=== PATIENT | male | born 1985 | race Caucasian/White ===

== ENCOUNTER 2017-11-07 08:58 | Emergency (ER) | payer MEDICAID, OTHER ==
[2017-11-07 09:12] VITALS: TEMP 97; BMI 41.3
[2017-11-07] MEDS ORDERED: Sodium Chloride 0.9% 1,000 ML IV STA (10:11)
--- NOTE | 2017-11-07 10:30 | RAD ---
PROCEDURE: Left Foot Radiographs. HISTORY: jammed toe, pain to foot, swelling COMPARISON: None. FINDINGS: BONES: Normal. No fracture. JOINTS: Normal. SOFT TISSUES: Normal. OTHER FINDINGS: None. IMPRESSION: Normal left foot radiographs.
--- NOTE | 2017-11-07 10:37 | ED PDOC ---
Arrival/HPI - General Chief Complaint: Lower Extremity Problem/Injury Time Seen by Provider: 11/07/17 09:21 Historian: Patient - History of Present Illness Narrative History of Present Illness (Text): 11/07/17 11:03 32-year-old male presents today with left foot pain status post injury 3 days ago. Patient states he stubbed his left great toe into the stent. Patient states next day he developed pain swelling and redness to the great toe. Patient states he took Motrin for pain yesterday. No medications have been taken for pain today. Patient denies numbness weakness or tingling in the extremity. Patient denies a history of gout. Patient denies fevers or chills. Patient complaining of pain with ambulation. No other complaints Past Medical History - Provider Review Nursing Documentation Reviewed: Yes - Travel History Have you recently traveled outside [place] w/in the past 3 mons?: No - Infectious Disease Hx of Infectious Diseases: None - Tetanus Immunization Tetanus Immunization: Unknown - Past Medical History Past Medical History: No Previous - Cardiac Hx Cardiac Disorders: Yes Hx Hypertension: Yes - Pulmonary Hx Respiratory Disorders: Yes Hx Asthma: Yes - Neurological Hx Neurological Disorder: No - HEENT Hx HEENT Disorder: Yes Hx Sinusitis: Yes - Renal Hx Renal Disorder: No - Endocrine/Metabolic Hx Endocrine Disorders: No - Hematological/Oncological Hx Blood Transfusions: No - Integumentary Hx Dermatological Disorder: No - Musculoskeletal/Rheumatological Hx Falls: Yes - Gastrointestinal Hx Gastrointestinal Disorders: Yes Hx Gall Bladder Disease: No Hx Gastritis: Yes - Genitourinary/Gynecological Hx Genitourinary Disorders: No - Psychiatric Hx Psychophysiologic Disorder: Yes Hx Depression: Yes Hx Substance Use: No (pot) - Past Surgical History Past Surgical History: No Previous - Surgical History Hx Amputation: No Hx Appendectomy: No Hx Cardiac Catheterization: No Hx Cholecystectomy: No Hx Coronary Stent: No Hx Gastric Bypass Surgery: No Hx Hysterectomy: No Hx Joint Replacement: No Hx Kidney Transplant: No Hx Liver Transplant: No Hx Mastectomy: No Hx Musculoskeletal Surgery: No Hx Orthopedic Surgery: No Hx Splenectomy: No Hx Valve Replacement: No - Anesthesia Hx Anesthesia: No Hx Anesthesia Reactions: No Hx Malignant Hyperthermia: No - Suicidal Assessment Feels Threatened In Home Enviroment: No Family/Social History - Physician Review Nursing Documentation Reviewed: Yes Family/Social History: Unknown Family HX Smoking Status: Current Some Days Smoker Hx Alcohol Use: Yes Frequency of alcohol use: Socially Hx Substance Use: No (pot) Hx Substance Use Treatment: No Allergies/Home Meds Allergies/Adverse Reactions: Allergies No Known Allergies Allergy (Verified 11/19/14 19:19) Review of Systems - Review of Systems Constitutional: absent: Fatigue, Fevers Respiratory: absent: SOB, Cough Cardiovascular: absent: Chest Pain, Palpitations Gastrointestinal: absent: Abdominal Pain, Nausea, Vomiting Musculoskeletal: Arthralgias (left foot pain). absent: Back Pain, Neck Pain Skin: absent: Rash, Pruritis Neurological: absent: Headache, Dizziness Psychiatric: absent: Anxiety, Depression Physical Exam Vital Signs Reviewed: Yes Vital Signs Temp Pulse Resp BP Pulse Ox 11/07/17 09:09 97.0 F L 63 16 130/87 97 Temperature: Afebrile Blood Pressure: Normal Pulse: Regular Respiratory Rate: Normal Appearance: Positive for: Well-Appearing, Non-Toxic, Comfortable Pain Distress: None Mental Status: Positive for: Alert and Oriented X 3 - Systems Exam Head: Present: Atraumatic Mouth: Present: Moist Mucous Membranes Neck: Present: Normal Range of Motion Respiratory/Chest: Present: Clear to Auscultation, Good Air Exchange. No: Respiratory Distress, Accessory Muscle Use Cardiovascular: Present: Regular Rate and Rhythm, Normal S1, S2. No: Murmurs Lower Extremity: Present: Tenderness (left foot; + edema, + erythema noted of 1st MTP; limited rom of great toe with pain; + warmth; no calf tenderness. sensation and distal pulses intact. cap refill <2. ), Swelling, Erythema, Neurovascularly Intact, Capillary Refill < 2 s Neurological: Present: GCS=15 Skin: Present: Warm, Dry, Normal Color Psychiatric: Present: Alert, Oriented x 3 Medical Decision Making ED Course and Treatment: 11/07/17 11:05 Patient nontoxic well-appearing in no distress with stable vital signs X-rays of the left foot; no fracture toradol IM cbc: wbc;11.8 cmp: wnl uric acid: Within normal limits ddx; fracture, gout, infection NS iv bolus. Patient given crutches given for ambulation. pt seen and evaluated by dr. carter; will place on keflex and motrin, pt to f/u with practice administrator in the next 2 days. I discussed all results in depth with the patient advised to followup with the orthopedist/practice administrator within the next 2 days. Return if symptoms worsen persist or new symptoms develop. Advised immediate return if signs of infection develop: High fevers, increasing pain, increasing redness, increasing swelling, purulent discharge Patient verbalizes understanding of discharge instructions and need for immediate followup. all aspects of this case were discussed the attending of record. Impression: foot pain Motrin every 6 hours as needed for pain keflex; 1 capsule 4 times daily x 7 days. Rest, ice, compression, elevation Use crutches for ambulation Followup with the orthopedist/practice administrator within the next 2 days Followup with primary care physician within the next 2 days Return if symptoms worsen persist or if new symptoms develop Reassessment Condition: Re-examined, Improved - Lab Interpretations Lab Results: 11/07/17 10:35 11/07/17 10:35 Lab Results 11/07/17 10:35: WBC 11.8 H D, RBC 5.41, Hgb 16.2, Hct 46.1, MCV 85.2, MCH 29.9, MCHC 35.1, RDW 14.5, Plt Count 181, MPV 13.0 H, Gran % 73.9 H, Lymph % (Auto) 17.1 L, [place] % (Auto) 7.9 H, Eos % (Auto) 1.0 L, Baso % (Auto) 0.1, Gran # 8.74 H, Lymph # (Auto) 2.0, [place] # (Auto) 0.9 H, Eos # (Auto) 0.1, Baso # (Auto) 0.01 11/07/17 10:35: Sodium 145, Potassium 3.9, Chloride 104, Carbon Dioxide 29, Anion Gap 16, BUN 11, Creatinine 0.6 L, Est GFR ( Amer) > 60, Est GFR ( Non-Af Amer) > 60, Random Glucose 89, Uric Acid 6.9, Calcium 8.8, Total Bilirubin 0.6, AST 57, ALT 114 H, Alkaline Phosphatase 90, Total Protein 7.5, Albumin 4.2, Globulin 3.3, Albumin/Globulin Ratio 1.3 - RAD Interpretation Radiology Orders: 11/07/17 09:25 FOOT LEFT 3 VIEWS ROUTINE [RAD] Stat - Medication Orders Current Medication Orders: Discontinued Medications Sodium Chloride (Sodium Chloride 0.9%) 1,000 mls @ 999 mls/hr IV .Q1H1M STA Stop: 11/07/17 11:11 Last Admin: 11/07/17 10:37 Dose: 999 mls/hr eMAR Start Stop Document 11/07/17 10:37 SF (Rec: 11/07/17 10:37 [email or web address] Intravenous Solution Start Date 11/07/17 Start Time 10:37 End Date 11/07/17 End time 11:38 Total Infusion Time 61 Ketorolac Tromethamine (Toradol) 60 mg IM STAT STA Stop: 11/07/17 09:26 Last Admin: 11/07/17 09:37 Dose: 60 mg MAR Pain Assessment Document 11/07/17 09:37 SF (Rec: 11/07/17 09:37 SF [email or web address] Pain Reassessment Is this a pain reassessment? Yes Sleep Is patient sleeping during reassessment? No Presence of Pain Presence of Pain Yes IM Administration Charges Document 11/07/17 09:37 SF (Rec: 11/07/17 09:37 SF [email or web address] Injection Site MAR Injection Site Left Deltoid Charges for Administration # of IM Administrations 1 Disposition/Present on Arrival - Present on Arrival Any Indicators Present on Arrival: No History of DVT/PE: No History of Uncontrolled Diabetes: No Urinary Catheter: No History of Decub. Ulcer: No History Surgical Site Infection Following: None - Disposition Have Diagnosis and Disposition been Completed?: Yes Diagnosis: Foot pain Disposition: HOME/ ROUTINE Disposition Time: 13:12 Patient Plan: Discharge Condition: GOOD Discharge Instructions (ExitCare): Cellulitis (Skin Infection), Adult (DC), Gout Additional Instructions: Motrin every 6 hours as needed for pain keflex; 1 capsule 4 times daily x 7 days. Rest, ice, compression, elevation Use crutches for ambulation Followup with the orthopedist/practice administrator within the next 2 days Followup with primary care physician within the next 2 days Return if symptoms worsen persist or if new symptoms develop Prescriptions: Cephalexin [Keflex] 500 mg PO QID #28 capsule Ibuprofen [Motrin] 600 mg PO Q6H PRN #20 tab PRN Reason: pain/fever reduction Referrals: Elvia Kraus MD [Medical Doctor] - Follow up with primary Trae Urbina DPM [Staff Provider] - Follow up with primary Tiffany Mg DPM [Staff Provider] - Follow up with primary [facility] at [facility] [place] [Outside] - Follow up with primary [facility] [Outside] - Follow up with primary Forms: [employer] (Irish), WORK NOTE
[2017-11-07 11:59] LABS: CALCIUM 8.8 mg/dL (8.4-10.5); GFR AFRICAN-AMERICAN > 60; GFR NON-AFRICAN AMERICAN > 60
[2017-11-07 12:14] LABS: ALB/GLOB RATIO 1.3 (1.1-1.8); ALBUMIN 4.2 g/dL (3.0-4.8); ALT/SGPT 114 U/L (7-56); AST/SGOT 57 U/L (17-59); BLOOD UREA NITROGEN 11 mg/dL (7-21); URIC ACID 6.9 mg/dL (3.5-8.5)
[2017-11-07 12:20] LABS: BASO # 0.01 K/mm3 (0.0-2.0); BASO % 0.1 % (0.0-3.0); EOS # 0.1 (0.0-0.7); GRAN # 8.74 (1.4-6.5); GRAN % 73.9 % (50.0-68.0); HEMOGLOBIN 16.2 g/dL (14.0-18.0); LYMPH % 17.1 % (22.0-35.0); MEAN CELL VOLUME 85.2 fl (80.0-105.0); MEAN CORPUSCULAR HEMOGLOBIN 29.9 pg (25.0-35.0); MEAN CORPUSCULAR HGB CONC 35.1 g/dl (31.0-37.0); MONO # 0.9 (0.1-0.6); MONO % 7.9 % (1.0-6.0); RBC 5.41 10^6/uL (3.5-6.1); RED CELL DISTRIBUTION WIDTH 14.5 % (11.5-14.5); WHITE BLOOD COUNT 11.8 10^3/ul (4.5-11.0)
[2017-11-07 13:49] VITALS: BP 129/82; PULSE 65; RESP 18; O2SAT 99
== END 2017-11-07 13:50 | disposition home or self-care (01) ==
LOC: ED 08:58
DX: M79.672 Pain in left foot (principal); I10 Essential (primary) hypertension
CPT/HCPCS: 73630; 80053; 84550; 85025; 96360; 96372; 99285; J1885; J7030

== ENCOUNTER 2018-10-02 10:43 | Emergency (ER) | payer MEDICAID, OTHER ==
[2018-10-02 10:43] VITALS: BMI 41.3
[2018-10-02 11:01] VITALS: RESP 18; TEMP 98.5
[2018-10-02] MEDS ORDERED: Morphine 4 mg/ml ISec IVP STA (11:10)
[2018-10-02 11:42] LABS: BASO # 0.02 K/mm3 (0.0-2.0); BASO % 0.2 % (0.0-3.0); EOS # 0.2 (0.0-0.7); EOS % 1.7 % (1.5-5.0); HEMOGLOBIN 16.5 g/dL (14.0-18.0); LYMPH # 2.3 (1.2-3.4); LYMPH % 22.2 % (22.0-35.0); MEAN CELL VOLUME 86.4 fl (80.0-105.0); MEAN CORPUSCULAR HEMOGLOBIN 29.8 pg (25.0-35.0); MEAN CORPUSCULAR HGB CONC 34.5 g/dl (31.0-37.0); MEAN PLATELET VOLUME 11.7 fl (7.0-11.0); MONO # 0.9 (0.1-0.6); RBC 5.53 10^6/uL (3.5-6.1); WHITE BLOOD COUNT 10.1 10^3/uL (4.5-11.0)
--- NOTE | 2018-10-02 11:48 | ED PDOC ---
Arrival/HPI - General Chief Complaint: Chest Pain Time Seen by Provider: 10/02/18 11:04 Historian: Patient - History of Present Illness Narrative History of Present Illness (Text): 10/02/18 11:48 A 33 year old male presents to the emergency department complaining of mid-chest pain radiating to back associated with shortness of breath. Patient reports he has had this before, however worse. States the pain worsens with movement and deep breaths. Patient denies any fever, cough, dizziness, or any other complaints at this time. Past Medical History - Provider Review Nursing Documentation Reviewed: Yes - Infectious Disease Hx of Infectious Diseases: None - Tetanus Immunization Tetanus Immunization: Unknown - Past Medical History Past Medical History: No Previous - Cardiac Hx Cardiac Disorders: Yes Hx Hypertension: Yes - Pulmonary Hx Respiratory Disorders: Yes Hx Asthma: Yes - Neurological Hx Neurological Disorder: No - HEENT Hx HEENT Disorder: Yes - Renal Hx Renal Disorder: No - Endocrine/Metabolic Hx Endocrine Disorders: No - Hematological/Oncological Hx Blood Transfusions: No - Integumentary Hx Dermatological Disorder: No - Musculoskeletal/Rheumatological Hx Falls: Yes - Gastrointestinal Hx Gastrointestinal Disorders: Yes Hx Gall Bladder Disease: No Hx Gastritis: Yes - Genitourinary/Gynecological Hx Genitourinary Disorders: No - Psychiatric Hx Psychophysiologic Disorder: Yes Hx Depression: Yes Hx Substance Use: No (pot) - Past Surgical History Past Surgical History: No Previous - Surgical History Hx Amputation: No Hx Appendectomy: No Hx Cardiac Catheterization: No Hx Cholecystectomy: No Hx Coronary Stent: No Hx Gastric Bypass Surgery: No Hx Hysterectomy: No Hx Joint Replacement: No Hx Kidney Transplant: No Hx Liver Transplant: No Hx Mastectomy: No Hx Musculoskeletal Surgery: No Hx Orthopedic Surgery: No Hx Splenectomy: No Hx Valve Replacement: No - Anesthesia Hx Anesthesia: No Hx Anesthesia Reactions: No Hx Malignant Hyperthermia: No - Suicidal Assessment Feels Threatened In Home Enviroment: No Family/Social History - Physician Review Nursing Documentation Reviewed: Yes Family/Social History: No Known Family HX Smoking Status: Current Some Days Smoker Hx Alcohol Use: Yes Hx Substance Use: No (pot) Hx Substance Use Treatment: No Allergies/Home Meds Allergies/Adverse Reactions: Allergies No Known Allergies Allergy (Verified 11/19/14 19:19) Review of Systems - Physician Review All systems were reviewed & negative as marked: Yes - Review of Systems Constitutional: absent: Fevers Respiratory: SOB. absent: Cough Cardiovascular: Chest Pain (mid-chest pain radiating to back) Neurological: absent: Dizziness Physical Exam Vital Signs Reviewed: Yes Vital Signs Temp Pulse Resp BP Pulse Ox 10/02/18 11:03 169/77 H 10/02/18 10:56 98.5 F 58 L 18 154/83 H 97 Temperature: Afebrile Blood Pressure: Normal Pulse: Regular Respiratory Rate: Normal Appearance: Positive for: Well-Appearing, Non-Toxic, Comfortable, Other (morbidly obese) Pain Distress: None Mental Status: Positive for: Alert and Oriented X 3 - Systems Exam Head: Present: Atraumatic, Normocephalic Pupils: Present: PERRL Extroacular Muscles: Present: EOMI Conjunctiva: Present: Normal Mouth: Present: Moist Mucous Membranes Pharnyx: Present: Normal Neck: Present: Normal Range of Motion, Other (neck supple) Respiratory/Chest: Present: Clear to Auscultation, Good Air Exchange. No: Respiratory Distress, Accessory Muscle Use Cardiovascular: Present: Regular Rate and Rhythm, Normal S1, S2. No: Murmurs Abdomen: No: Tenderness, Distention, Peritoneal Signs Back: Present: Normal Inspection Upper Extremity: Present: Normal Inspection. No: Cyanosis, Edema Lower Extremity: Present: Normal Inspection. No: Edema Neurological: Present: GCS=15, CN II-XII Intact, Speech Normal Skin: Present: Warm, Dry, Normal Color. No: Rashes Psychiatric: Present: Alert, Oriented x 3, Normal Insight, Normal Concentration Medical Decision Making ED Course and Treatment: 10/02/18 11:49 Impression: 33 year old male with mid-chest pain radiating to back, associated with shortness of breath. Differential Diagnosis included but are not limited to: Chest Pain rule out AL vs. PE vs. Dissection. Plan: -- EKG -- Labs -- Chest X-ray -- Pain Control -- Chest CT -- Nasal Cannula O2 -- Urinalysis -- Reassess and disposition Progress Notes: EKG: Ordered, reviewed, and independently interpreted the EKG. Rate : 57 BPM Rhythm : Sinus bradycardia Interpretation : Normal access. Comparison : No previous EKG for comparison. - Lab Interpretations I have reviewed the lab results: Yes - RAD Interpretation Radiology Orders: 10/02/18 11:10 CHEST PORTABLE [RAD] Stat 10/02/18 11:12 ANGIO CHEST PE PROTOCOL [CT] Stat - Medication Orders Current Medication Orders: Discontinued Medications Aspirin (Aspirin) 325 mg PO STAT STA Stop: 10/02/18 11:11 Morphine Sulfate (Morphine) 4 mg IVP STAT STA Stop: 10/02/18 11:11 - Scribe Statement The provider has reviewed the documentation as recorded by the Jose Luis Brandt Provider Scribe Attestation: All medical record entries made by the Scribe were at my direction and personally dictated by me. I have reviewed the chart and agree that the record accurately reflects my personal performance of the history, physical exam, medical decision making, and the department course for this patient. I have also personally directed, reviewed, and agree with the discharge instructions and disposition. Disposition/Present on Arrival - Present on Arrival Any Indicators Present on Arrival: No History of DVT/PE: No History of Uncontrolled Diabetes: No Urinary Catheter: No History of Decub. Ulcer: No History Surgical Site Infection Following: None - Disposition Have Diagnosis and Disposition been Completed?: Yes Diagnosis: Chest pain Disposition: HOME/ ROUTINE Disposition Time: 16:26 Patient Plan: Discharge Condition: IMPROVED Discharge Instructions (ExitCare): Chest Pain (DC) Prescriptions: Ibuprofen [Motrin] 600 mg PO Q6 #20 tab Referrals: [facility] at [facility] [place]Outside] - Follow up with primary [facility] at [facility] [Outside] - Follow up with primary [facility] at [place] [Outside] - Follow up with primary PCP,NO [Primary Care Provider] - Follow up with primary Forms: [employer] (Vietnamese)
[2018-10-02 11:56] LABS: ALB/GLOB RATIO 1.4 (1.1-1.8); ALBUMIN 4.3 g/dL (3.0-4.8); BLOOD UREA NITROGEN 7 mg/dL (7-21); CALCIUM 8.7 mg/dL (8.4-10.5); GFR NON-AFRICAN AMERICAN > 60
[2018-10-02 12:01] LABS: ALT/SGPT 51 U/L (7-56); AST/SGOT 35 U/L (17-59)
[2018-10-02 12:08] LABS: TROPONIN I < 0.01 ng/mL
[2018-10-02 12:30] LABS: URINE BILIRUBIN NEGATIVE (NEGATIVE); URINE BLOOD NEGATIVE (NEGATIVE); URINE GLUCOSE (UA) NEGATIVE (NEGATIVE); URINE LEUKOCYTE ESTERASE TRACE Leu/uL (NEGATIVE); URINE PROTEIN NEGATIVE mg/dL (<30 mg/dL); URINE UROBILINOGEN 0.2 E.U./dL (<1 E.U./dL)
[2018-10-02] MEDS ORDERED: Iohexol 350 MG/100 ML VIAL ONE (12:34)
[2018-10-02 12:42] LABS: URINE APPEARANCE SL CLOUDY (CLEAR); URINE COLOR YELLOW (YELLOW)
[2018-10-02 12:45] LABS: URINE BACTERIA MOD /hpf; URINE WBC 20 - 25 /hpf (0-6)
[2018-10-02 13:27] VITALS: BP 157/90; PULSE 60; O2SAT 98
--- NOTE | 2018-10-02 14:12 | CT ---
Date of service: 10/02/2018 PROCEDURE: CT Chest with contrast (Pulmonary Angiogram) HISTORY: chest pain radiating to mid back COMPARISON: None available. TECHNIQUE: Axial computed tomography images were obtained of the chest in the pulmonary arterial phase of enhancement. Coronal and sagittal reformatted images were created and reviewed. Intravenous contrast dose: 100 mL Omnipaque 350 Radiation dose: Total exam DLP = 508.83 mGy-cm. This CT exam was performed using one or more of the following dose reduction techniques: Automated exposure control, adjustment of the mA and/or kV according to patient size, and/or use of iterative reconstruction technique. FINDINGS: PULMONARY ARTERIES: Technically limited examination due to relatively poor differential enhancement of the pulmonary artery branches. No evidence of pulmonary embolism. AORTA: No acute findings. No thoracic aortic aneurysm. No aortic atherosclerotic calcification or mural plaque present. LUNGS: Unremarkable. No nodule, mass or pulmonary consolidation. PLEURAL SPACES: Unremarkable. No effusion or pneumothorax. HEART: Unremarkable. No cardiomegaly. No significant pericardial effusion. LYMPH NODES: No lymphadenopathy. BONES, CHEST WALL: Unremarkable. No fracture or destructive lesion OTHER FINDINGS: 6 mm nonobstructing calculus upper pole left kidney. IMPRESSION: Technically limited. No evidence of pulmonary embolism. Nonobstructing 6 mm left upper pole renal calculus. No additional abnormality.
--- NOTE | 2018-10-02 17:25 | RAD ---
Date of service: 10/02/2018 HISTORY: r/o infiltrate COMPARISON: 11/12/2014 TECHNIQUE: 1 view obtained. FINDINGS: LUNGS: No active pulmonary disease. PLEURA: No significant pleural effusion identified, no pneumothorax apparent. CARDIOVASCULAR: No aortic atherosclerotic calcification present. Normal cardiac size. No pulmonary vascular congestion. OSSEOUS STRUCTURES: No significant abnormalities. VISUALIZED UPPER ABDOMEN: Normal. OTHER FINDINGS: None. IMPRESSION: No active disease.
--- NOTE | 2018-10-02 20:16 | CARD ---
APPROVED REPORT Date of service: 10/02/2018 EKG Measurement Heart [id number] ME [id number] [id number] <Conclusion> Sinus bradycardia Possible Septal infarct, age undetermined CCR Abnormal ECG
== END 2018-10-02 16:26 | disposition home or self-care (01) ==
LOC: ED 10:43
DX: R07.9 Chest pain, unspecified (principal); I10 Essential (primary) hypertension
CPT/HCPCS: 71045; 71275; 80053; 81001; 82550; 83615; 83735; 84484; 85025; 87086; 93005; 96374; 96375; 99284; J1885; J2270; Q9967